=== PATIENT | male | born 1955 | race Caucasian/White ===

== ENCOUNTER 2020-03-12 13:15 | Outpatient (REF) | payer BC, SELFPAY | END 2020-03-12 13:16 | disposition home or self-care (01) | LOC: HO.LAB 13:15 | PROVIDERS: PCP Internal Medicine; Visit Provider Internal Medicine | DX: Z20.828 Contact with and (suspected) exposure to other viral communicable diseases (principal) | CPT/HCPCS: C9803; U0003 ==

== ENCOUNTER 2021-12-28 11:51 | Emergency (ER) | payer BC, MEDICARE, SELFPAY ==
--- NOTE | ~2021-12-28 | XR_ITS ---
EXAMINATION: XR ABDOMEN KUB CLINICAL INDICATION: Vomiting and constipation. Question small bowel obstruction COMPARISON: None TECHNIQUE: AP view of the abdomen. FINDINGS: Moderate to large amount of formed stool in the right colon, transverse colon, and descending colon. Mild gaseous distention of the sigmoid. Small amount of gas in the rectum. No dilated air-filled bowel loops. No bowel wall thickening. No gross large volume free air on this limited supine exam. Visualized lung bases are grossly clear. No acute osseous injury. XR/XR KUB IMPRESSION: 1. Nonobstructive bowel gas pattern. 2. Moderate to large stool burden.
--- NOTE | ~2021-12-28 | CT_ITS ---
EXAMINATION: CT ABDOMEN AND PELVIS WITHOUT CONTRAST CLINICAL INFORMATION: Leukocytosis COMPARISON: KUB performed same day TECHNIQUE: Multidetector volumetric imaging was performed from the superior aspect of the liver through the pubic symphysis. Sagittal and coronal reformatted images were obtained on the technologist's workstation. This CT examination was performed using dose optimization techniques as appropriate, variously including the following: *Automated exposure control *Adjustment of mA and/or kV according to patient size (this includes techniques or standardized protocols for targeted exams where dose is matched to indication/reason for exam; i.e. extremities or head) *Use of iterative reconstruction technique DLP: 606 mGy-cm FINDINGS: LUNG BASES: Unremarkable. ABDOMINAL AND PELVIC WALL: Unremarkable. LIVER AND BILIARY TREE: Unremarkable. GALLBLADDER: Unremarkable. PANCREAS: Unremarkable. SPLEEN: Unremarkable. ADRENAL GLANDS: Unremarkable. KIDNEYS AND URETERS: A 1.1 cm intermediate attenuation indeterminate left midpole renal lesion. GASTROINTESTINAL TRACT: Unremarkable. VASCULAR: Unremarkable. LYMPH NODES/PERITONEUM: No lymphadenopathy. FREE FLUID: None. BLADDER: Urinary bladder appears circumferentially thick-walled. PELVIC VISCERA: Prostate is mildly enlarged measuring 5.2 cm in transverse diameter. OSSEOUS STRUCTURES: Unremarkable. CT/CT abdomen pelvis wo IV con IMPRESSION: Urinary bladder appears circumferentially thick walled, recommend correlation with urinalysis as cystitis could have this appearance. A 1.1 cm indeterminant left midpole renal lesion, for which further evaluation with CT or MR renal mass protocol is recommended.
[2021-12-28 11:57] VITALS: BP 135/69; PULSE 88; RESP 16; TEMP 36.8; O2SAT 98; BMI 26.4
[2021-12-28 18:23] LABS: Basophils Absolute Auto 0.1 X10*3/uL (0.0-0.2); Basophils Percent Auto 0.3 % (0-2); Hematocrit 37.2 % (42.0-52.0); Hemoglobin 12.1 g/dl (14.0-18.0); Imm Gran Abs Auto 0.31 X10*3/uL (0.00-0.03); Lymphocytes Absolute Auto 1.5 X10*3/uL (1.2-4.9); Lymphocytes Percent Auto 4.8 % (20-40); MANUAL DIFF FLAG SCAN; Mean Corpuscular HGB Conc 32.5 g/dl (31.0-36.0); Mean Corpuscular Hemoglobin 20.5 pg (27.0-33.0); Mean Platelet Volume 9.1 fL (9.4-12.4); Monocytes Absolute Auto 2.4 X10*3/uL (0.1-1.2); Monocytes Percent Auto 7.7 % (2-11); Neutrophils Absolute Auto 26.4 x10*3/uL (2.0-8.3); Neutrophils Percent Auto 86.2 % (45-73); Platelet Count 232 X10*3/uL (160-400); Red Cell Distribution Width 15.8 % (11.0-16.0); SCAN SMEAR FLAG 1
[2021-12-28 18:26] LABS: Mean Corpuscular Volume 63.1 fL (80.0-98.0); White Blood Count 30.7 X10*3/uL (4.8-10.8)
[2021-12-28 18:37] LABS: Alanine Aminotransferase 17 U/L (0-40); Albumin Level 4.3 g/dL (3.5-5.0); Alkaline Phosphatase 71 U/L (39-117); Anion Gap 16 (12-20); Aspartate Amino Transferase 18 U/L (5-37); Bilirubin Total 1.5 mg/dL (0.0-1.0); Blood Urea Nitrogen 20 mg/dL (9-16); Calcium 9.2 mg/dL (8.4-10.2); Carbon Dioxide 25 mmol/L (22-29); Chloride 98 mmol/L (96-108); Creatinine Clr Calc Pharmacy 76.9; Estimated Glomerular Filt Rate > 60; Glucose Random 137 mg/dL (60-115); Magnesium 1.8 mg/dL (1.6-2.6); Potassium 4.2 mmol/L (3.3-5.1); Sodium 135 mmol/L (135-145); Total Protein 7.1 g/dL (6.5-8.0)
[2021-12-28 18:44] LABS: SLIDE REVIEW VERIFIED
[2021-12-28 18:59] LABS: COVID-19 Test Negative (Negative); IDNOW Serial# 55D5AD1C
[2021-12-28 22:56] VITALS: BP 119/65; PULSE 68; RESP 18; TEMP 36.6; O2SAT 99
--- NOTE | 2021-12-28 22:57 | ED.GENADULT ---
HPI - General Adult General Chief complaint: General Medical Stated complaint: Bowel blockage? Time Seen by Provider: 12/28/21 16:23 Source: patient Mode of arrival: ambulatory Limitations: no limitations History of Present Illness HPI narrative: patient presents emergency department for evaluation of abnormal bowel movements. Patient reporting x-ray and that may have a blockage. States for the past 2 weeks he has been unable to have a normal bowel movement. He has been using enemas a mineral oil without significant improvement. Reporting only liquid stools. This morning he had a single episode of a small amount of emesis, yellow in color. mild abdominal pain, described as pressure and bloating, diffusely, but worse to lower abdomen. He does also endorse dysuria for the past 2 days, he states that he self catheterized himself 1 week ago due to urinary retention, which he states is not uncommon given his history of BPH. Patient denies fevers, chills, neck pain, neck stiffness, headache, dizziness, lightheadedness, chest pain, shortness of breath, difficulty breathing, back pain, plan pain, numbness or tingling to the extremities, generalized weakness. Related Data Previous Rx's Medication Instructions Recorded cefpodoxime 200 mg tablet 200 mg PO Q12H 10 days #20 tabs 12/29/21 polyethylene glycol 3350 17 17 g PO DAILY #119 grams 12/29/21 gram/dose oral powder (Miralax) Allergies Allergy/AdvReac Type Severity Reaction Status Date / Time No Known Allergies Allergy Unverified 12/13/19 16:22 [No Known Allergies*] Review of Systems Review of Systems: Constitutional : No Weight loss, No Fever, No Chills ENT/Mouth :? No sore throat, No Rhinorrhea Eyes: No Swelling, No Redness Cardiovascular : No Chest Pain, No SOB, No Edema Respiratory : No Cough, No Sputum, No Wheezing Gastrointestinal : No Nausea, Positive Vomiting, positive Diarrhea, positive abdominal pain, No Hematochezia, No Melena Genitourinary : Positive Dysuria, positive Urinary Frequency, No Hematuria, No Urgency? Musculoskeletal : No joint pain, No Myalgias, No Joint Swelling Skin : No Skin Lesions, No rash Neuro : No Weakness, No Numbness, No Dizziness, No Headache Psych : No Anxiety/Panic, No Depression Heme/Lymph: No Bruising, No Lymphadenopathy Endocrine : No Polyuria, No Polydipsia Yes all other systems are reviewed and are negative [facility] Past Medical History Attestation statement: The following information was validated with the patient. Source: old records reviewed Social History Social History Advance Directives: No Advance Directives Information Provided: Yes Physical Exam ED Vital Signs: Vital Signs - 24 hr 12/28/21 11:57 12/28/21 22:56 Temperature 98.3 F 97.8 F Pulse Rate 88 68 Respiratory Rate 16 18 Blood Pressure 135/69 119/65 Pulse Oximetry 98 99 Oxygen Delivery Method Room Air Room Air BMI result Body Mass Index 26.4 Vital signs have been reviewed as normal and appeared to be correct. Blood pressure normal.? Heart rate normal.? Respiration rate normal. Temperature normal.? Oxygen saturation normal. Appearance: Alert.?Oriented to person, place and time. No acute distress.?Normal affect. Eyes: Pupils equal, round and reactive to light.? ENT: Pharynx normal.?? Neck: Normal inspection.? Neck supple.?? CVS: Heart sounds normal. Normal heart rate and rhythm.? Pulses normal.?? Respiratory: No respiratory distress.? Lung sounds clear to auscultation bilaterally?? Abdomen: Soft and non-tender. Normoactive bowel sounds. no CVA tenderness Skin: Skin warm and dry.? Normal skin color.? ?? Extremities: No lower extremity edema.? Neuro: Moves all extremities spontaneously. Sensation intact bilaterally. No focal neuro deficits. Ambulates with normal steady gait. Course Course Course Narrative: Patient is a 66-year-old male with past medical history of hypertension and BPH who presents to the emergency department for evaluation of constipation. 2258: First contact with patient, review of labs from triage; significant leukocytosis of 30.7 with neutrophilia, microcytic anemia. CMP is overall unremarkable, BUN is mildly elevated. At this time, infection is suspected, suspecting urinary tract infection as a source of leukocytosis, dysuria over the past 2 days, and recent self straight catheterization. Will obtain lactic acid and blood cultures, cover with ceftriaxone. however, vital signs are stable, has not been febrile, is not tachycardic, no tachypnea or hypoxia. Normotensive. KUB reveals nonobstructive bowel gas pattern with moderate to large stool burden. CT reveals unremarkable gastrointestinal tract, no evidence of obstruction. Urinary bladder with circumferentially thick wall, may be consistent with cystitis. There is also mention of a 1.1 cm left midpole renal lesion, for which evaluation CT or MRI renal mass protocol is recommended. patient made aware of this incidental finding, this will likely require non Urgent outpatient follow-up Reevaluation(s) Reevaluation #1: Urinalysis consistent with infection, positive nitrates, large amount of leukocyte esterase, hematuria. He is without flank tenderness, no evidence of pyelonephritis on CT scan. Lactic acid is 1.8. reviewed case with ED attending, Dr. Hill, advises admission given significant leukocytosis. Spoke with hospitalist Dr. Maddox, declines patient for admission at this time. Vital signs are stable, No lactic acidosis, tolerating oral intake, no prior resistant genitourinary bacteria. repeat CBC with some improvement, WBC is 25.7. discussed with patient plan of care for discharge home, course of antibiotics, were some signs and symptoms to return back to the emergency department for. Again reviewed outpatient follow-up regarding renal lesion. All questions were answered. Patient discharged home in stable condition. Time: 00:30 Medical Decision Making Medical Records Medical records reviewed: Yes I reviewed the patient's medical records. Lab Data Lab results reviewed: Yes I reviewed the patient's lab results. Result diagrams: 12/29/21 00:17 12/28/21 18:16 Labs: Lab Results 12/28/21 12/28/21 12/28/21 Range/Units 18:16 18:16 18:16 WBC 30.7 H* (4.8-10.8) X10*3/uL RBC 5.90 H (4.60-5.80) X10*6/uL Hgb 12.1 L (14.0-18.0) g/dl Hct 37.2 L (42.0-52.0) % MCV 63.1 L (80.0-98.0) fL MCH 20.5 L (27.0-33.0) pg MCHC 32.5 (31.0-36.0) g/dl RDW 15.8 (11.0-16.0) % Plt Count 232 (160-400) X10*3/uL MPV 9.1 L (9.4-12.4) fL Immature Gran % (Auto) 1.0 H (0.0-0.4) % Neut % (Auto) 86.2 H (45-73) % Lymph % (Auto) 4.8 L (20-40) % Marion % (Auto) 7.7 (2-11) % Eos % (Auto) 0.0 (0-4) % Baso % (Auto) 0.3 (0-2) % Lymph # (Auto) 1.5 (1.2-4.9) X10*3/uL Marion # (Auto) 2.4 H (0.1-1.2) X10*3/uL Eos # (Auto) 0.0 (0.0-0.4) X10*3/uL Baso # (Auto) 0.1 (0.0-0.2) X10*3/uL Abs Immat Gran (auto) 0.31 H (0.00-0.03) X10*3/uL Absolute Neuts (auto) 26.4 H (2.0-8.3) x10*3/uL Absolute Nucleated RBC 0.000 (0.0-0.012) X10*3/uL Nucleated RBC % (auto) 0.0 (0.0-0.2) /100WBC Smear Tech's Comments VERIFIED Sodium 135 (135-145) mmol/L Potassium 4.2 (3.3-5.1) mmol/L Chloride 98 (96-108) mmol/L Carbon Dioxide 25 (22-29) mmol/L Anion Gap 16 (12-20) BUN 20 H (9-16) mg/dL Creatinine 1.05 (0.5-1.4) mg/dL Estim Creat Clear Calc 76.9 Estimated GFR > 60 Random Glucose 137 H (60-115) mg/dL Lactic Acid (0.5-2.0) mmol/L Calcium 9.2 (8.4-10.2) mg/dL Magnesium 1.8 (1.6-2.6) mg/dL Total Bilirubin 1.5 H (0.0-1.0) mg/dL AST 18 (5-37) U/L ALT 17 (0-40) U/L Alkaline Phosphatase 71 (39-117) U/L Total Protein 7.1 (6.5-8.0) g/dL Albumin 4.3 (3.5-5.0) g/dL Urine Color Urine Appearance Urine pH (5.0-9.0) Ur Specific [place] (1.005-1.025) Urine Protein (Neg-Trace) mg/dL Urine Glucose (UA) (Negative) mg/dL Urine Ketones (Negative) mg/dL Urine Blood (Negative) Urine Nitrite (Negative) Ur Leukocyte Esterase (Negative) Urine RBC (0-2) /HPF Urine WBC (0-5) /HPF Urine WBC Clumps Ur Squamous Epith Cells (0-2) /HPF Urine Bacteria (None Seen) Hyaline Casts (0-2) /LPF COVID-19 (GERARDO) Negative (Negative) COVID-19 Clin Com See Note 12/28/21 12/28/21 12/29/21 Range/Units 23:30 23:34 00:17 WBC 25.7 H (4.8-10.8) X10*3/uL RBC 5.60 (4.60-5.80) X10*6/uL Hgb 11.3 L (14.0-18.0) g/dl Hct 35.1 L (42.0-52.0) % MCV 62.7 L (80.0-98.0) fL MCH 20.2 L (27.0-33.0) pg MCHC 32.2 (31.0-36.0) g/dl RDW 15.3 (11.0-16.0) % Plt Count 216 (160-400) X10*3/uL MPV 9.1 L (9.4-12.4) fL Immature Gran % (Auto) (0.0-0.4) % Neut % (Auto) (45-73) % Lymph % (Auto) (20-40) % Marion % (Auto) (2-11) % Eos % (Auto) (0-4) % Baso % (Auto) (0-2) % Lymph # (Auto) (1.2-4.9) X10*3/uL Marion # (Auto) (0.1-1.2) X10*3/uL Eos # (Auto) (0.0-0.4) X10*3/uL Baso # (Auto) (0.0-0.2) X10*3/uL Abs Immat Gran (auto) (0.00-0.03) X10*3/uL Absolute Neuts (auto) (2.0-8.3) x10*3/uL Absolute Nucleated RBC (0.0-0.012) X10*3/uL Nucleated RBC % (auto) (0.0-0.2) /100WBC Smear Tech's Comments Sodium (135-145) mmol/L Potassium (3.3-5.1) mmol/L Chloride (96-108) mmol/L Carbon Dioxide (22-29) mmol/L Anion Gap (12-20) BUN (9-16) mg/dL Creatinine (0.5-1.4) mg/dL Estim Creat Clear Calc Estimated GFR Random Glucose (60-115) mg/dL Lactic Acid 1.8 (0.5-2.0) mmol/L Calcium (8.4-10.2) mg/dL Magnesium (1.6-2.6) mg/dL Total Bilirubin (0.0-1.0) mg/dL AST (5-37) U/L ALT (0-40) U/L Alkaline Phosphatase (39-117) U/L Total Protein (6.5-8.0) g/dL Albumin (3.5-5.0) g/dL Urine Color [place] A Urine Appearance Cloudy Urine pH 5.0 (5.0-9.0) Ur Specific [place] 1.015 (1.005-1.025) Urine Protein Trace (Neg-Trace) mg/dL Urine Glucose (UA) Negative (Negative) mg/dL Urine Ketones Negative (Negative) mg/dL Urine Blood Moderate (2+) H (Negative) Urine Nitrite Positive H (Negative) Ur Leukocyte Esterase Large (3+) H (Negative) Urine RBC 0-2 (0-2) /HPF Urine WBC >50 H (0-5) /HPF Urine WBC Clumps Present Ur Squamous Epith Cells 0-2 (0-2) /HPF Urine Bacteria 4+ (None Seen) Hyaline Casts 0-2 (0-2) /LPF COVID-19 ([facility]ARDO) (Negative) COVID-19 Clin Com Imaging Data CT scan - abdomen: Radiologist's impression: CT/CT abdomen pelvis wo IV con IMPRESSION: ? Urinary bladder appears circumferentially thick walled, recommend correlation with urinalysis as cystitis could have this appearance. ? A 1.1 cm indeterminant left midpole renal lesion, for which further evaluation with CT or MR renal mass protocol is recommended. KUB: Radiologist's impression: XR/XR KUB IMPRESSION: ? 1. Nonobstructive bowel gas pattern. 2. Moderate to large stool burden. Discharge Plan Discharge Clinical Impression: Urinary tract infection Patient Disposition: Home, Self-Care Instructions: Urinary Tract Infection in Men (ED) Additional Instructions: You were found to have a urinary tract infection, for this you have been placed on antibiotics, please complete this entire course. You should return to the emergency department any new or worsening symptoms or concerns. including, but not limited to fevers, shaking chills, nausea persistent vomiting, severe worsening abdominal pain, worsening pain with urination, urinary retention, Or blood in the urine. For your constipation, you have been given a new prescription for MiraLax to use daily. Stop taking the MiraLax if you develop diarrhea. As we discussed, there was an incidental finding of a lesion to your left kidney. Your primary care provider needs to be aware of this, you will need further follow-up with a CT scan or MRI with renal mass protocol. Speak with your primary care provider as they may be able to follow-up on this. If not, you have been given contact information for a loose hand packer, a kidney specialist to follow up with. Prescriptions: New polyethylene glycol 3350 [Miralax] 17 gram/dose powder 17 g PO DAILY Qty: 119 0RF cefpodoxime 200 mg tablet 200 mg PO Q12H 10 Days Qty: 20 0RF Rx Instructions: must administer with a meal/food Referrals: Win Benz MD [Physician] - Stand Alone Forms: Work/School Release
--- OUTSIDE RECORDS SUMMARY | 2021-12-28 23:18 | XMS_ITS | Continuity of Care Document ---
:[address] [facility] Adult Address [address] [place] [address]- Care Team Providers Name Role Phone Khoi Jason MD Primary Care Physician [place] [facility] [place]/06/[place] - 09/05/19 [facility] [address] [place] [address]- [facility] Attending Physician: Khoi Jason MD Allergies, Adverse Reactions, Alerts Substance Reaction Severity Status NKA Active Immunizations Given and Recorded Vaccine Date Status Refusal Reason influenza virus vaccine, inactivated 12/26/18 Recorded influenza virus vaccine, inactivated 12/27/17 Given influenza virus vaccine, inactivated1 12/23/16 Given tetanus/diphtheria/pertussis, acel(Tdap) 09/01/11 Recorde d 1Result Comment: [12/23/2016] [facility] [place] [id number] Medications finasteride 5 mg oral tablet 1 tablet = 5 mg, By Mouth, Daily, # 30 tablet, 0 Refills, Maintenance, 06/17/17 16:39:05 Start Date: 06/17/17 Status: Orderedlisinopril 20 mg oral tablet 20 mg, 1, tablet, By Mouth, Daily, # 90 tablet, Refills 3, Tot. Refills 3, Maintenance, 08/06/19 15:19:00 EDT, Route to Pharmacy Electronically, [facility]/pharmacy #[id number], 183, cm, 08/06/19 15:12:00 EDT, Height Start Date: 08/06/19 Status: Orderedtamsulosin 0.4 mg oral capsule = 0.4 mg, By Mouth, Daily, # 30 Doses, 0 Refills, Maintenance, 05/23/14 8:38:45, Capsule, 0.4 mg By Mouth Daily Start Date: 05/23/14 Status: Orderedtriamcinolone 0.1% topical cream 1 application, Topically, 2 times a day, # 30 Gm, 0 Refills, Maintenance, 03/09/18 11:04:36 EST, Cream, 1 application Topically 2 times a day Start Date: 03/09/18 Status: Ordered Problem List Condition Effective Dates Status Health Status Informant Benign hypertension(Confirmed) Active Benign prostate hyperplasia(Confirmed) Active Cellulitis of right lower Active extremity(Confirmed) Dyslipidemia(Confirmed) Active Internal and external hemorrhoids Active without complication(Confirmed) Thalassemia minor(Confirmed) Active Overweight(Confirmed) Active History of prostate biopsy(Confirmed) Active Sessile colonic polyp(Confirmed) Active Elevated PSA measurement(Confirmed) Active Tubular adenoma of colon(Confirmed)1 09/11/18 Active 1repeat screening colonoscopy in 2021 Vital Signs Most recent to oldest [Reference Range]: 1 Height 183 cm (08/06/19 3:12 PM) Social History Social History Type Response Smoking Status Never smoker entered on: 05/22/14 Sex
--- OUTSIDE RECORDS SUMMARY | 2021-12-28 23:18 | XMS_ITS | Continuity of Care Document ---
:1955 Author Organization [facility] [place] Adult Address [address] [place] [address]- Care Team Providers Name Role Phone Eren SALINAS, Khoi Small Primary Care Physician Encounter [facility] [place] Date(s): 11/13/20 - 12/13/20 [facility] [place] Adult [address] [place] [address]- Allergies, Adverse Reactions, Alerts Substance Reaction Severity Status NKA Active Immunizations Given and Recorded Vaccine Date Status Refusal Reason SARS-CoV-2 (COVID-19) mRNA-1273 vaccine 08/02/20 Recorded SARS-CoV-2 (COVID-19) mRNA-1273 vaccine 07/05/20 Recorded zoster vaccine, inactivated1 06/17/20 Recorded zoster vaccine, inactivated 04/18/20 Recorded influenza virus vaccine, inactivated 12/05/19 Recorded influenza virus vaccine, inactivated2 12/26/18 Recorded influenza virus vaccine, inactivated 12/09/18 Recorded influenza virus vaccine, inactivated 12/27/17 Given influenza virus vaccine, inactivated3 12/23/16 Given influenza virus vaccine, inactivated 01/04/14 Recorded Influenza Virus Vaccine (oldterm)4 11/27/19 Recorded tetanus/diphtheria/pertussis, acel(Tdap) 09/01/11 Recorde d 1Result Comment: [id number] Comment: [id number] Comment: [12/23/2016] [facility] [id number] Comment: DUPLICATE Medications finasteride 5 mg oral tablet 1 tablet = 5 mg, By Mouth, Daily, # 30 tablet, 0 Refills, Maintenance, 06/17/17 16:39:05 Start Date: 06/17/17 Status: Orderedlisinopril 20 mg oral tablet 1, tablet, By Mouth, Daily, # 90 tablet, Refills 1, Tot. Refills 0, Maintenance, 10/11/20 14:11:00 EDT, Route to Pharmacy Electronically, [id number], 183, cm, 04/28/20 11:46:00 EST, Height Start Date: 10/11/20 Status: Orderedtadalafil 5 mg oral tablet 1 tablet, By Mouth, Every 72 hours, # 10 tablet, 0 Refills, [id number], 183, cm, 10/17/20 13:14:00 EDT, Height Start Date: 12/08/20 Status: Orderedtamsulosin 0.4 mg oral capsule = [...] Active Cellulitis of right lower Active extremity(Confirmed) COVID-19(Confirmed) 03/12/20 Active Dyslipidemia(Confirmed) Active Erectile dysfunction(Confirmed) Active Internal and external hemorrhoids Active without complication(Confirmed) Thalassemia minor(Confirmed) Active Overweight(Confirmed) Active History of prostate biopsy(Confirmed) Active Sessile colonic polyp(Confirmed) Active Elevated PSA measurement(Confirmed) Active Tubular adenoma of colon(Confirmed)1 09/11/18 Active 1repeat screening colonoscopy in 2021 Social History Social History Type Response Smoking Status Never smoker entered on: 05/22/14 Sex
--- OUTSIDE RECORDS SUMMARY | 2021-12-28 23:18 | XMS_ITS | Continuity of Care Document ---
:1955 Author Organization [facility] Adult Address [address] [place] [address]- Care Team Providers Name Role Phone Khoi Jason MD Primary Care Physician Encounter [facility] [place] Date(s): 04/28/20 - 05/05/20 [facility] [address] [place] [address]- Attending Physician: Khoi Jason MD Allergies, Adverse Reactions, Alerts Substance Reaction Severity Status NKA Active Immunizations Given and Recorded Vaccine Date Status Refusal Reason zoster vaccine, inactivated 04/18/20 Recorded Influenza Virus Vaccine (oldterm) 11/27/19 Recorded influenza virus vaccine, inactivated 12/26/18 Recorded influenza virus vaccine, inactivated 12/27/17 Given influenza virus vaccine, inactivated1 12/23/16 Given tetanus/diphtheria/pertussis, acel(Tdap) 09/01/11 Recorde d 1Result Comment: [12/23/2016] [facility] [id number] Medications finasteride 5 mg oral tablet 1 tablet = 5 mg, By Mouth, Daily, # 30 tablet, 0 Refills, Maintenance, 06/17/17 16:39:05 Start Date: 06/17/17 Status: Orderedlisinopril 20 mg oral tablet 20 mg, 1, tablet, By Mouth, Daily, # 90 tablet, Refills 3, Tot. Refills 3, Maintenance, 08/06/19 15:19:00 EDT, Route to Pharmacy Electronically, [facility]/pharmacy #[id number], 183, cm, 08/06/19 15:12:00 EDT, Height Start [...] Active extremity(Confirmed) COVID-19(Confirmed) 03/12/20 Active Dyslipidemia(Confirmed) Active Internal and external hemorrhoids Active without complication(Confirmed) Thalassemia minor(Confirmed) Active Overweight(Confirmed) Active History of prostate biopsy(Confirmed) Active Sessile colonic polyp(Confirmed) Active Elevated PSA measurement(Confirmed) Active Tubular adenoma of colon(Confirmed)1 09/11/18 Active 1repeat screening colonoscopy in 2021 Vital Signs Most recent to oldest [Reference Range]: 1 Height 183 cm (04/28/20 11:46 AM) Weight 92.27 kg (04/28/20 11:46 AM) Body Mass Index [18.5-24.99] 27.55 *H* (04/28/20 11:46 AM) Blood Pressure [90-138/55-84 mm Hg] 126/77 mm Hg (04/28/20 11:46 AM) Weight Obtained Via Standing scale (04/28/20 11:46 AM) Social History Social History Type Response Smoking Status Never smoker entered on: 05/22/14 Sex
--- OUTSIDE RECORDS SUMMARY | 2021-12-28 23:18 | XMS_ITS | Continuity of Care Document ---
:1955 Author Organization [facility] Adult Address [address] [place] [address]- Care Team Providers Name Role Phone Khoi Jason MD Primary Care Physician Encounter [facility] [place] Date(s): 05/08/19 - 09/05/19 [facility] Adult [address] [place] [address]- [facility] Attending Physician: Khoi Jason MD Allergies, Adverse Reactions, Alerts Substance Reaction Severity Status NKA Active Immunizations Given and Recorded Vaccine Date Status Refusal Reason influenza virus vaccine, inactivated 12/26/18 Recorded influenza virus vaccine, inactivated 12/27/17 Given influenza virus vaccine, inactivated1 12/23/16 Given tetanus/diphtheria/pertussis, acel(Tdap) 09/01/11 Recorde d 1Result Comment: [12/23/2016] [facility] [id number] Medications finasteride 5 mg oral tablet 1 tablet = 5 mg, By Mouth, Daily, # 30 tablet, 0 Refills, Maintenance, 06/17/17 16:39:05 Start Date: 06/17/17 Status: Orderedlisinopril 20 mg oral tablet 20 mg, 1, tablet, By Mouth, Daily, # 90 tablet, Refills 3, Tot. Refills 3, Maintenance, 08/06/19 15:19:00 EDT, Route to Pharmacy Electronically, [facility]/pharmacy #[id number], 183, cm, 08/06/19 15:12:00 EDT, Height Start [...]
--- OUTSIDE RECORDS SUMMARY | 2021-12-28 23:18 | XMS_ITS | Continuity of Care Document ---
:1955 Author Organization [facility] Adult Address [address] [place] [address]- Care Team Providers Name Role Phone Eren SALINAS, Khoi Small Primary Care Physician Encounter [facility] [place] Date(s): 04/28/20 - 05/28/20 [facility] [address] [place] [address]- Attending Physician: Admtr, Ar8 Admitting Physician: Admtr, Ar8 Referring Physician: Admtr, Ar8 Allergies, Adverse Reactions, Alerts Substance Reaction Severity Status NKA Active Immunizations Given and Recorded Vaccine Date Status Refusal Reason zoster vaccine, inactivated 04/18/20 Recorded Influenza Virus Vaccine (oldterm) 11/27/19 Recorded influenza virus vaccine, inactivated 12/26/18 Recorded influenza virus vaccine, inactivated 12/27/17 Given influenza virus vaccine, inactivated1 12/23/16 Given tetanus/diphtheria/pertussis, acel(Tdap) 09/01/11 Recorde d 1Result Comment: [12/23/2016] [facility] [id number] Medications finasteride 5 mg oral tablet 1 tablet = 5 mg, By Mouth, Daily, # 30 tablet, 0 Refills, Maintenance, 06/17/17 16:39:05 Start Date: 06/17/17 Status: Orderedlisinopril 20 mg oral tablet 20 mg, 1, tablet, By Mouth, Daily, # 90 tablet, Refills 3, Tot. Refills 3, Maintenance, 08/06/19 15:19:00 EDT, Route to Pharmacy Electronically, [facility]/pharmacy #[id number], 183, cm, 08/06/19 15:12:00 EDT, [...]
--- OUTSIDE RECORDS SUMMARY | 2021-12-28 23:18 | XMS_ITS | Continuity of Care Document ---
:1955 Author Organization [facility] Adult Address [address] [place] [address]- Care Team Providers Name Role Phone Khoi Jason MD Primary Care Physician [place] [facility] [place](s): 08/06/19 - 08/13/19 [facility] [address] [place] [address]- [facility] Attending Physician: Khoi Jason MD Allergies, Adverse Reactions, Alerts Substance Reaction Severity Status NKA Active Immunizations Given and Recorded Vaccine Date Status Refusal Reason influenza virus vaccine, inactivated 12/26/18 Recorded influenza virus vaccine, inactivated 12/27/17 Given influenza virus vaccine, inactivated1 12/23/16 Given tetanus/diphtheria/pertussis, acel(Tdap) 09/01/11 Recorde d 1Result Comment: [12/23/2016] [facility] [id number] Medications finasteride 5 mg oral tablet 1 tablet = 5 mg, By Mouth, Daily, # 30 tablet, 0 Refills, Maintenance, 06/17/17 16:39:05 Start Date: 06/17/17 Status: Orderedlisinopril 20 mg oral tablet 20 mg, 1, tablet, By Mouth, Daily, # 90 tablet, Refills 3, Tot. Refills 3, Maintenance, 08/06/19 15:19:00 EDT, Route to Pharmacy Electronically, [facility]/pharmacy #[id number], 183, cm, 08/06/19 15:12:00 EDT, Height Start [...]
--- OUTSIDE RECORDS SUMMARY | 2021-12-28 23:18 | XMS_ITS | Continuity of Care Document ---
:1955 Author Organization [facility] Adult Address [address] [place] [address]- Care Team Providers Name Role Phone Khoi Jason MD Primary Care Physician [place] [facility] [place]21 - 05/08/21 [facility] [address] [place] [address]- Attending Physician: Khoi Jason MD Allergies, Adverse Reactions, Alerts No Known Allergies Immunizations Given and Recorded Vaccine Date Status Refusal Reason SARS-CoV-2 (COVID-19) mRNA-1273 vaccine 03/19/21 Recorded SARS-CoV-2 (COVID-19) mRNA-1273 vaccine 08/02/20 Recorded SARS-CoV-2 (COVID-19) mRNA-1273 vaccine 07/05/20 Recorded influenza virus vaccine, inactivated 12/27/20 Recorded influenza virus vaccine, inactivated 12/05/19 Recorded influenza virus vaccine, inactivated1 12/26/18 Recorded influenza virus vaccine, inactivated 12/09/18 Recorded influenza virus vaccine, inactivated 12/27/17 Given influenza virus vaccine, inactivated2 12/23/16 Given influenza virus vaccine, inactivated 01/04/14 Recorded zoster vaccine, inactivated3 06/17/20 Recorded zoster vaccine, inactivated 04/18/20 Recorded Influenza Virus Vaccine (oldterm)4 11/27/19 Recorded tetanus/diphtheria/pertussis, acel(Tdap) 09/01/11 Recorde d 1Result Comment: [id number] Comment: [12/23/2016] [facility] [id number] Comment: [id number] Comment: DUPLICATE Medications finasteride 5 mg oral tablet 1 tablet = 5 mg, By Mouth, Daily, # 30 tablet, 0 Refills, Maintenance, 06/17/17 16:39:05 Start Date: 06/17/17 Status: Orderedlisinopril 20 mg oral tablet 1, tablet, By Mouth, Daily, # 90 tablet, Refills 1, Route to Pharmacy Electronically, [id number], 183, cm, 10/17/20 13:14:00 EDT, Height Start Date: 04/03/21 Status: Orderedtadalafil 5 mg oral tablet 1 tablet, By Mouth, Every 72 hours, # 10 tablet, 3 Refills, [id number], 183, cm, 10/17/20 13:14:00 EDT, Height Start Date: 01/30/21 Status: Orderedtamsulosin 0.4 mg oral capsule = [...] oldest [Reference Range]: 1 Height 183 cm (05/01/21 12:58 PM) Weight 94 kg (05/01/21 12:58 PM) Body Mass Index [18.5-24.99] 28.07 *H* (05/01/21 12:58 PM) Blood Pressure [90-138/55-84 mm Hg] 115/75 mm Hg (05/01/21 12:58 PM) Weight Obtained Via Standing scale (05/01/21 12:58 PM) Social History Social History Type Response Smoking Status Never smoker entered on: 05/22/14 Sex
--- OUTSIDE RECORDS SUMMARY | 2021-12-28 23:18 | XMS_ITS | Continuity of Care Document ---
:1955 Author Organization [facility] Adult Address [address] [place] [address]- Care Team Providers Name Role Phone Khoi Jason MD Primary Care Physician [place] [facility] [place]20 [facility] [address] [place] [address]- Attending Physician: Khoi Jason MD Allergies, Adverse Reactions, Alerts Substance Reaction Severity Status NKA Active Immunizations Given and Recorded Vaccine Date Status Refusal Reason influenza virus vaccine, inactivated 12/26/18 Recorded influenza virus vaccine, inactivated 12/27/17 Given influenza virus vaccine, inactivated1 12/23/16 Given tetanus/diphtheria/pertussis, acel(Tdap) 09/01/11 Recorde d 1Result Comment: [12/23/2016] [facility] 2] [id number] Medications finasteride 5 mg oral tablet 1 tablet = 5 mg, By Mouth, Daily, # 30 tablet, 0 Refills, Maintenance, 06/17/17 16:39:05 Start Date: 06/17/17 Status: Orderedlisinopril 20 mg oral tablet 20 mg, 1, tablet, By Mouth, Daily, # 90 tablet, Refills 3, Tot. Refills 3, Maintenance, 08/06/19 15:19:00 EDT, Route to Pharmacy Electronically, [facility]/pharmacy #[id number], 183, cm, 08/06/19 15:12:00 EDT, Height Start [...]
--- OUTSIDE RECORDS SUMMARY | 2021-12-28 23:18 | XMS_ITS | Continuity of Care Document ---
:1955 Author Organization [facility] Adult Address [address] [place] [address]- Care Team Providers Name Role Phone Khoi Jason MD Primary Care Physician Encounter [facility] [place] Date(s): 10/17/20 - 10/24/20 [facility] [address] [place] [address]- Attending Physician: Khoi Jason MD Allergies, Adverse [...] tetanus/diphtheria/pertussis, acel(Tdap) 09/01/11 Recorde d 1Result Comment: [id number] Comment: [id number] Comment: [12/23/2016] [facility] [id number] Comment: DUPLICATE Medications Cialis 5 mg oral tablet 1 tablet = 5 mg, By Mouth, Every 72 hours, # 10 tablet, 0 Refills, Maintenance, 10/17/20 13:35:00 EDT, [facility]/pharmacy #[id number], Partial fill upon patient request if the prescription is for a schedule II opioid drug., 183, cm, 10/17/20 13:14:00 EDT, Height Start Date: 10/17/20 Status: Orderedfinasteride 5 mg oral tablet 1 tablet = 5 mg, By Mouth, Daily, # 30 tablet, 0 Refills, Maintenance, 06/17/17 16:39:05 Start Date: 06/17/17 Status: Orderedlisinopril 20 mg oral tablet 1, tablet, By Mouth, Daily, # 90 tablet, Refills 1, Tot. Refills 0, Maintenance, 10/11/20 14:11:00 EDT, Route to Pharmacy Electronically, [id number], 183, cm, 04/28/20 11:46:00 EST, Height Start Date: 10/11/20 Status: Orderedtamsulosin 0.4 mg oral capsule = [...] oldest [Reference Range]: 1 Height 183 cm (10/17/20 1:14 PM) Weight 94.7 kg (10/17/20 1:14 PM) Oxygen Saturation [94-100 %] 98 % (10/17/20 1:14 PM) Pulse Rate [55-90 bpm] 52 bpm *L* (10/17/20 1:14 PM) Body Mass Index [18.5-24.99] 28.28 *H* (10/17/20 1:14 PM) Blood Pressure [90-138/55-84 mm Hg] 126/62 mm Hg (10/17/20 1:14 PM) Respiratory Rate [16-30 br/min] 16 br/min (10/17/20 1:14 PM) Temperature [96.8-100.4 DegF] 98.3 DegF (10/17/20 1:14 PM) Mode of Delivery (Oxygen) Room air (10/17/20 1:14 PM) Blood pressure sites Arm, right (10/17/20 1:14 PM) Temperature Route Oral (10/17/20 1:14 PM) Weight Obtained Via Standing scale (10/17/20 1:14 PM) Social History Social History Type Response Smoking Status Never smoker entered on: 05/22/14 Sex
--- OUTSIDE RECORDS SUMMARY | 2021-12-28 23:18 | XMS_ITS | Continuity of Care Document ---
:1955 Author Organization [facility] Address [address] [place] [address]- Care Team Providers Name Role Phone Khoi Jason MD Primary Care Physician Encounter [facility] [place](s): 11/06/21 - 11/13/21 [facility] [address] [place] [address]- Attending Physician: Khoi Jason MD Allergies, Adverse Reactions, Alerts No Known Allergies Immunizations Given and Recorded Vaccine Date Status Refusal Reason SARS-CoV-2 (COVID-19) mRNA-1273 vaccine 08/14/21 Recorded SARS-CoV-2 (COVID-19) mRNA-1273 vaccine 03/19/21 Recorded SARS-CoV-2 (COVID-19) mRNA-1273 vaccine 08/02/20 Recorded SARS-CoV-2 (COVID-19) mRNA-1273 vaccine 07/05/20 Recorded influenza virus vaccine, inactivated 12/27/20 Recorded influenza virus vaccine, inactivated 12/05/19 Recorded influenza virus vaccine, inactivated1 12/26/18 Recorded influenza virus vaccine, inactivated 12/26/18 Recorded influenza virus vaccine, inactivated 12/09/18 Recorded influenza virus vaccine, inactivated 12/27/17 Given influenza virus vaccine, inactivated2 12/23/16 Given influenza virus vaccine, inactivated 01/04/14 Recorded zoster vaccine, inactivated3 06/17/20 Recorded zoster vaccine, inactivated 04/18/20 Recorded Influenza Virus Vaccine (oldterm)4 11/27/19 Recorded tetanus/diphtheria/pertussis, acel(Tdap) 09/01/11 Recorde d 1Result Comment: [id number] Comment: [12/23/2016] [facility] [id number] Comment: [id number] Comment: DUPLICATE Medications finasteride 5 mg oral tablet 1 tablet = 5 mg, By Mouth, Daily, # 30 tablet, 0 Refills, Maintenance, 06/17/17 16:39:05 Start Date: 06/17/17 Status: Orderedlisinopril 20 mg oral tablet 1, tablet, By Mouth, Daily, # 90 tablet, Refills 1, Tot. Refills 1, 10/05/21 11:34:00 EDT, Route to Pharmacy Electronically, [facility]/pharmacy #[id number], 183, cm, 05/01/21 12:58:00 EST, Height Start Date: 10/05/21 Status: Orderedtadalafil 5 mg oral tablet 1 tablet, By Mouth, Every 72 hours, # 10 tablet, 2 Refills, 11/06/21 13:29:00 EDT, [id number], 183, cm, 11/06/21 13:07:00 EDT, Height Start Date: 11/06/21 Status: Orderedtadalafil 5 mg oral tablet 1 tablet = 5 mg, By Mouth, Daily, # 30 tablet, 5 Refills, Maintenance, 11/06/21 13:41:00 EDT, [facility]/pharmacy #[id number], Partial fill upon patient request if the prescription is for a schedule II opioid drug., 183, cm, 11/06/21 13:40:00 EDT, Height Start Date: 11/06/21 Status: Orderedtamsulosin 0.4 mg oral capsule = [...] Most recent to oldest [Reference Range]: 1 2 Height 183 cm 183 cm (11/06/21 1:40 PM) (11/06/21 1:07 PM) Weight 91.1 kg (11/06/21 1:07 PM) Oxygen Saturation [94-100 %] 99 % (11/06/21 1:07 PM) Pulse Rate [55-90 bpm] 50 bpm *L* (11/06/21 1:07 PM) Body Mass Index [18.5-24.99] 27.2 *H* (11/06/21 1:07 PM) Blood Pressure [90-138/55-84 mm Hg] 125/62 mm Hg 126/ 84 mm Hg (11/06/21 1:40 PM) (11/06/21 1:07 PM) Temperature [96.8-100.4 DegF] 98.4 DegF (11/06/21 1:07 PM) Mode of Delivery (Oxygen) Room air (11/06/21 1:07 PM) Blood pressure sites Arm, left Arm, right (11/06/21 1:40 PM) (11/06/21 1:07 PM) Temperature Route Oral (11/06/21 1:07 PM) Weight Obtained Via Standing scale (11/06/21 1:07 PM) Social History Social History Type Response Smoking Status Never smoker entered on: 05/22/14 Sex
[2021-12-28] MEDS: cefTRIAXone sodium 1 GM in 0.9 % Sodium Chloride 50 ML IV (23:31)
[2021-12-28 23:45] LABS: Appearance Urine Cloudy; Color Urine Orange; Glucose Urine UA Negative (Negative); Leukocyte Esterase Urine Large (3+) (Negative); Nitrite Urine Positive (Negative); Specific Gravity - Urine 1.015 (1.005-1.025); UMIC TRIGGER UACC YES; Urine Blood Moderate (2+) (Negative); Urine Ketones Negative (Negative); Urine Protein Trace mg/dL (Neg-Trace)
[2021-12-28 23:46] LABS: Lactic Acid 1.8 mmol/L (0.5-2.0)
[2021-12-29] LABS: Bacteria Urine 4+ (None Seen); Hyaline Casts Urine 0-2 /LPF (0-2); RBC Urine 0-2 /HPF (0-2); Squamous Epithelial Cell Urine 0-2 /HPF (0-2); UACC Culture Trigger YES; WBC Clumps Urine Present; WBC Urine >50 /HPF (0-5)
[2021-12-29 00:23] LABS: Basophils Absolute Auto 0.1 X10*3/uL (0.0-0.2); Basophils Percent Auto 0.2 % (0-2); Eosinophils Percent Auto 0.1 % (0-4); Hematocrit 35.1 % (42.0-52.0); Hemoglobin 11.3 g/dl (14.0-18.0); Imm Gran Abs Auto 0.21 X10*3/uL (0.00-0.03); Imm Gran Pct Auto 0.8 % (0.0-0.4); Lymphocytes Absolute Auto 1.8 X10*3/uL (1.2-4.9); Lymphocytes Percent Auto 7.1 % (20-40); MANUAL DIFF FLAG SCAN; Mean Corpuscular HGB Conc 32.2 g/dl (31.0-36.0); Mean Corpuscular Hemoglobin 20.2 pg (27.0-33.0); Mean Platelet Volume 9.1 fL (9.4-12.4); Monocytes Absolute Auto 1.7 X10*3/uL (0.1-1.2); Monocytes Percent Auto 6.5 % (2-11); Neutrophils Percent Auto 85.3 % (45-73); Platelet Count 216 X10*3/uL (160-400); Red Cell Distribution Width 15.3 % (11.0-16.0); SCAN SMEAR FLAG 1; White Blood Count 25.7 X10*3/uL (4.8-10.8)
[2021-12-29 00:25] LABS: Mean Corpuscular Volume 62.7 fL (80.0-98.0)
== END 2021-12-29 01:18 | disposition home or self-care (01) ==
PROVIDERS: Nurse Practitioner Family; Physician Assistant; Emergency Provider Emergency Medicine Emergency Medical Services; PCP Internal Medicine
DX: N39.0 Urinary tract infection, site not specified (principal); B96.89 Other specified bacterial agents as the cause of diseases classified elsewhere; R31.9 Hematuria, unspecified; K59.00 Constipation, unspecified; D72.829 Elevated white blood cell count, unspecified; D50.9 Iron deficiency anemia, unspecified; I10 Essential (primary) hypertension; N28.9 Disorder of kidney and ureter, unspecified; Z20.822 Contact with and (suspected) exposure to COVID-19
CPT/HCPCS: 36415; 74018; 74176; 80053; 81001; 83605; 83735; 85025; 87040; 87086; 87088; 87186; 87635; 96365; 99284; J0696

== ENCOUNTER 2022-10-08 08:27 | Outpatient (AMB) | payer BC, SELFPAY ==
--- NOTE | 2022-10-08 08:36 | MHC.OFFVIS ---
Intake Vital Signs 10/08/22 08:40 Height 6 ft Weight 194 lb 7.163 oz BMI 26.4 BP 136/72 Blood Pressure Location Lt brachial Position Sitting Pulse 55 Intake Visit Reasons: Screening of a Colonosopy Intake Note: Evans presents in office as a new.patient for a colonoscopy screening. PT CC:pt reports having no concerns pt denies any other GI Issues [place] Required: No Accompanied by: Spouse Allergies No Known Allergies [No Known Allergies*] Allergy (Unverified 10/08/22 08:36) HPI Screening of a Colonosopy HPI Details 66 year old? male here today for pre colonoscopy screening.? Patient was sent to us by his PCP.? Patient had colonoscopy 4 years ago, couple polyps were removed and was told to return in 3-4 years. Colonoscopy was done at [facility] in [place].? Patient denies any gastrointestinal symptoms in the past or at present.? Denies any personal or family history of gastrointestinal disease, colon polyps, or cancer.? Denies history of difficulty with sedation or anesthesia in the past.? Negative for history of sleep apnea.? Denies any history of cardiac, renal, pulmonary, or hepatic disease.?? No history of infectious? diseases like hepatitis A, B, C, HIV or tuberculosis.? Patient is not on any anticoagulation therapy. 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 Review of Systems Const Denies weight gain and Denies weight loss ENT Reports no additional complaints, Denies dysphagia and Denies odynophagia Card Reports no additional complaints Resp Reports no additional complaints GI Denies abdominal pain, Denies belching, Denies melena, Denies bloating, Denies change in bowel habits, Denies dysphagia, Denies excessive flatus, Denies dyspepsia, Denies heartburn, Denies diarrhea, Denies loose stools, Denies nausea, Denies odynophagia and Denies vomiting Reports no additional complaints Musc Reports no additional complaints Neuro Reports no additional complaints Psych Reports no additional complaints Endo Reports no additional complaints Physical Exam Vital Signs: Last Vital Signs Pulse 55 10/08/22 08:40 BP 136/72 10/08/22 08:40 BMI result Body Mass Index 26.4 Const General: healthy appearing, no acute distress and well developed Nutritional Appearance: well nourished Orientation/consciousness: patient oriented x3 HEENT Head: Yes normal to inspection, Yes normocephalic and Yes atraumatic Face and sinus: Yes normal facial exam Mouth: Normal oral and palatal mucosa present Throat: Yes posterior oropharynx normal, Yes tonsils normal and Yes uvula midline Eyes General: appearance normal, both eyes and all related structures Neck Neck: Yes normal visual inspection, Yes full ROM and Yes trachea midline Thyroid: Thyroid normal Resp Effort & Inspection: normal respiratory effort, able to speak in complete sentences, no tracheal deviation and symmetric chest movement Auscultation: clear to auscultation bilaterally Cardio Rate: regular rate Heart sounds: S1 normal heart sound present and S2 normal heart sound present GI Inspection: Yes normal to inspection and No distended Palpation (GI): Soft to palpation, not firm, nontender and No hepatosplenomegaly present Auscultation: normal bowel sounds General: Yes no CVA tenderness Back/Spine/Pelvis Back: no CVA tenderness Skin General skin exam: elasticity normal, turgor normal and dry skin Neuro General: patient oriented x3 Psych Appearance: grossly normal Mental Status: mental status grossly normal Speech and movement: Normal speech and movement present Affect: normal affect Assessment & Plan Assessment & Plan (1) Screen for colon cancer: Code(s): Z12.11 - Encounter for screening for malignant neoplasm of colon Plan: Patient denies any GI, cardiac or respiratory symptoms.? Denies any issues with anesthesia in the past.? Denies any history of sleep apnea.? No history infectious diseases in the past or present.? Not on any anticoagulation therapy.? No family or personal history of colon cancer or polyps.? Patient denies melena, hematochezia, unintentional weight loss or ribbon like stools.? Discussed at length the pre-procedure,? prep, diet & medications as well as what to expect prior, during and after the procedure.?? Stressed the importance of good bowel prep. ?Recommended the use of Vaseline or Calmoseptine OTC & baby wipes with bowel movements to promote comfort.? ?Patient verbalizes understanding and agrees to plan of care.? He was given the opportunity to ask questions and all questions answered.? We will see him after the procedure.? Medications: New docusate sodium 100 mg PO DAILY 30 caps 3RF K59.00 - Constipation, unspecified bisacodyl (Dulcolax (bisacodyl)) take 2 tabs at noon the day before your colonoscopy 10 mg (2 x 5 mg) PO ONCE 2 tabs 0RF 1 day Z12.11 - Encounter for screening for malignant neoplasm of colon polyethylene glycol 3350 (Miralax) As directed by gastroenterology department at [facility] 238 grams PO ONCE 238 grams 0RF Z12.11 - Encounter for screening for malignant neoplasm of colon Coding Level of Care Code New Pt Level 3 (72827) Diagnoses Screen for colon cancer Z12.11 Time Spent (min) 40 Comment 30 minutes spent with patient and additional 10 minutes spent reviewing his records
[2022-10-08 08:40] VITALS: BP 136/72; PULSE 55; BMI 26.4
== END 2022-10-08 09:15 | disposition home or self-care (01) ==
PROVIDERS: PCP Internal Medicine; Visit Provider Nurse Practitioner Family
DX: Z01.818 Encounter for other preprocedural examination (principal); Z12.11 Encounter for screening for malignant neoplasm of colon
CPT/HCPCS: S0285

== ENCOUNTER → 2022-10-08 08:27 | Outpatient (BNVA) | payer BC, SELFPAY | PROVIDERS: PCP Internal Medicine; Visit Provider Nurse Practitioner Family ==

== ENCOUNTER 2023-01-28 08:01 | Day surgery (SDC) | payer BC, SELFPAY ==
[2023-01-26 10:59] VITALS: BMI 26.4
--- NOTE | 2023-01-27 11:48 | P.CONAN_ITS ---
Documented by User: Barbie Watson NP 01/27/23 11:49 HPI - Anesthesia Eval Consult details Narrative: 67yo M for Colonoscopy [facility] Past Medical History Medical History History of eye disorder History of prostate disorder HTN (hypertension) Family History Family History Father HTN (hypertension) Surgical History Surgical History History of prostate surgery History of adenoidectomy Social History Social History Household Members: Family Alcohol intake: current Alcohol intake frequency: holidays/special occasions only Patient Tobacco Use Status: Never used Tobacco Use of substances other than those prescribed or required for medical reasons: No Are you DNR?: No Advance Directives: No Advance Directives Information Provided: Yes Current occupational status: employed 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 Meds Allergies Allergy/AdvReac Type Severity Reaction Status Date / Time No Known Allergies Allergy Unverified 10/08/22 08:36 [No Known Allergies*] Home Medications Medication Instructions Recorded Confirmed Last Taken Type lisinopril 20 mg tablet 20 mg PO DAILY 10/08/22 01/28/23 01/27/23 History Exam Exam Date and Time: January 27, 2023 1148 Height,Weight and Vital Signs: Height 6 ft Weight 88.195 kg Assessment and Plan Assessment Anesthesia Assessment: Chart Reviewed Documented by User: Sarah Leonard MD 01/28/23 09:43 [facility] Past Medical History Medical History History of eye disorder History of prostate disorder HTN (hypertension) Family History Family History Father HTN (hypertension) Surgical History Surgical History History of prostate surgery History of adenoidectomy History of Problems with Anesthesia: No Social History Social History Household Members: Family Alcohol intake: current Alcohol intake frequency: holidays/special occasions only Patient Tobacco Use Status: Never used Tobacco Use of substances other than those prescribed or required for medical reasons: No Are you DNR?: No Advance Directives: No Advance Directives Information Provided: Yes Current occupational status: employed 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 Meds Allergies Allergy/AdvReac Type Severity Reaction Status Date / Time No Known Allergies Allergy Unverified 10/08/22 08:36 [No Known Allergies*] Home Medications Medication Instructions Recorded Confirmed Last Taken Type lisinopril 20 mg tablet 20 mg PO DAILY 10/08/22 01/28/23 01/27/23 History Exam Airway Mallampati Class: III TM Dist: >3cm Neck ROM: Full Loose/Missing/Broken Teeth: Yes Heart: RRR Lungs: CTA Assessment and Plan Assessment Anesthesia Assessment: Anesthesia Plan Discussed Final Anesthetic Review History of Problems with Anesthesia: No NPO: Yes ASA Class: II Final Preanesthetic Review: Meds/Allgs Chart Reviewed, Consent Obtained/Reviewed and Anes Risks/Benef Reviewed Patient Risk: Low Procedure Risk: Low Anesthetic Plan Anesthetic Plan: MAC: Disposition: Standard PACU
--- NOTE | 2023-01-28 08:38 | MHC.SHP ---
Pre-Procedural Eval Section A Date of Service: 01/28/23 The patient is an INPATIENT: No The History & Physical has been completed within 30 days and I have reviewed it.: No Section B Chief Complaint: Encounter for screening for malignant neoplasm Relevant Family History (Specify if Yes): No Relevant Social History: None Present Medications: see Short Stay Collaborative assessment Medical History: Significant History (hypertension) History of Previous Operations: Relevant previous surgery/procedure and date(s) (hx of prostate surgery) Allergies: Allergies Allergy/AdvReac Type Severity Reaction Status Date / Time No Known Allergies Allergy Unverified 10/08/22 08:36 [No Known Allergies*] Review of Systems Sugical H&P ROS: Negative: Constitution, Cardiovascular, Respiratory and Gastrointestinal Exam Surgical H&P Exam: Normal: Heart, Normal: Lungs, Normal: Extremities and Normal: Abdomen Plan Diagnosis/Plan: Unchanged I have reviewed the history and physical and performed a pertinent physical examination on my patient. No changes have occurred unless specified. Time Spent With Patient Time: Total time managing care of this patient today ____ minutes.
[2023-01-28 08:39] VITALS: BP 139/80; PULSE 61; RESP 16; TEMP 36.5; O2SAT 100
[2023-01-28] MEDS: Lactated Ringers 1,000 ML 100 ML IVCONT (09:00)
--- NOTE | 2023-01-28 09:27 | W.PM.OPN ---
Operative Note Operative Note Date of Service: 01/28/23 Narrative: COLONOSCOPY TILL CECUM WITH SNARE POLYPECTOMY Pre-op diagnosis: surveillance for colon polyps Post-op diagnosis:? colon polyps, diverticulosis, hemorrhoids Endoscopist:? Daniel Evans MD Anesthesia:?MAC Consent: Indications for the procedure and potential complications of bleeding, perforation, reaction to medications and missed diagnosis were discussed with the patient and informed consent was obtained. Instrument: Olympus CF H 190 L variable stiffness adult colonoscope Monitoring: Vital signs and clinical assessment, intermittent blood pressure monitoring, continuous EKG monitoring, Pulse oximetry and Carbon Dioxide monitoring were done throughout the procedure. Please see anesthesia flowsheet. Colon withdrawl time was 34 minutes. Procedure: The patient was placed in the left lateral decubitis position and pre-procedure medications were administered. After a digital rectal examination of the ano-rectum, the video colonoscope was inserted into the rectum and advanced through the colon to the cecum. The colonoscope was slowly withdrawn in a retrograde panoramic fashion and the colon mucosa was carefully examined including a retroflexed view of the rectum. Findings and interventions are described below. Procedure Difficulty: colon was long and tortuous and there was recurrent loop formation. The patient was placed in the supine position and LLQ pressure was applied to intubate the transverse colon/cecum Findings: Terminal Ileum: Not evaluated Cecum: Normal Ascending Colon: Normal Transverse Colon: A 7-8 mm sessile polyp - removed with a cold snare Descending Colon: Normal Sigmoid Colon: Moderate diverticulosis Rectum: A 12 mm sessile and ulcerated polyp at 10 cms - removed with a hot snare Ano-rectum: Moderate internal hemorrhoids Colon preparation: Fair despite copious irrigation. There was undigested vegetable matter which could not be suctioned completely Impression and Post Procedure Diagnosis: Colonoscopy Findings: One small and one medium polyps removed Moderate diverticulosis seen in the sigmoid colon Moderate hemorrhoids on retroflexed exam. Prep was fair despite copious irrigation. There was undigested vegetable matter which could not be suctioned completely Plan: Await pathology results Patient has an appointment on 02/11/23 in the [facility] with Korin Strickland FNP-BC. Repeat Colonoscopy interval based on path results - in 3 years if polyps are adenomatous and due to fair prep (adult colonoscope and extra laxatives for the prep versus two day prep for future colonoscopies). Above findings were reviewed with the patient and colon polyps and diverticulosis handouts were given in the discharge area
[2023-01-28 10:35] VITALS: BP 88/52; PULSE 48; RESP 18; TEMP 36.1; O2SAT 99
[2023-01-28 10:50] VITALS: BP 115/73; PULSE 56; RESP 16; O2SAT 100
[2023-01-28 11:05] VITALS: BP 130/78; PULSE 62; RESP 14; TEMP 36.2; O2SAT 99
== END 2023-01-28 11:17 | disposition home or self-care (01) ==
PROVIDERS: PCP Internal Medicine; Visit Provider Internal Medicine Gastroenterology
PROC: 0DJD8ZZ Inspection of Lower Intestinal Tract, Via Natural or Artificial Opening Endoscopic (ICD-10-PCS; CPT 45378; principal; 2023-01-28 09:20)
DX: Z12.11 Encounter for screening for malignant neoplasm of colon (principal); Z86.010 Personal history of colon polyps; D12.3 Benign neoplasm of transverse colon; K62.1 Rectal polyp; K57.30 Diverticulosis of large intestine without perforation or abscess without bleeding; K64.8 Other hemorrhoids; K59.00 Constipation, unspecified; I10 Essential (primary) hypertension; R97.20 Elevated prostate specific antigen [PSA]; Z79.899 Other long term (current) drug therapy; Z98.890 Other specified postprocedural states
CPT/HCPCS: 45385; 88305

== ENCOUNTER → 2023-01-28 08:01 | Outpatient (BNV) | payer BC, SELFPAY | PROVIDERS: PCP Internal Medicine; Visit Provider Internal Medicine Gastroenterology | DX: Z12.11 Encounter for screening for malignant neoplasm of colon (principal); Z86.010 Personal history of colon polyps; D12.3 Benign neoplasm of transverse colon; K62.1 Rectal polyp | CPT/HCPCS: 45385 ==